=== PATIENT | male | born 1960 | race African-American/Black ===

== ENCOUNTER 2016-12-04 19:39 | Emergency (ER) | payer OTHER ==
[~2016-12-04] VITALS: Ht 172.7 cm; Wt 107.0 kg
== END 2016-12-04 20:33 | disposition short-term general hospital (02) ==
LOC: CFTX 19:39 → CED 19:39 → CFTX 20:26
DX: S68.125A Partial traumatic metacarpophalangeal amputation of left ring finger, initial encounter (principal); I10 Essential (primary) hypertension; E11.9 Type 2 diabetes mellitus without complications; F17.200 Nicotine dependence, unspecified, uncomplicated; Z23 Encounter for immunization; W45.8XXA Other foreign body or object entering through skin, initial encounter
CPT/HCPCS: 90471; 90715; 99284